=== PATIENT | male | born 1990 | race Two or more races ===

== ENCOUNTER 2025-05-27 08:57 | Emergency (ER) | payer MEDICAID, SELFPAY ==
[2025-05-27 08:59] VITALS: BMI 27.3
[2025-05-27 09:24] VITALS: BP 195/111; PULSE 78; RESP 19; TEMP 36.7; O2SAT 98
--- NOTE | 2025-05-27 09:29 | EKG_ITS ---
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
--- NOTE | 2025-05-27 09:29 | PD.EDRME ---
Rapid Medical Screening Exam RME Arrival date/time: 05/27/25 08:57 35-year-old male with no known medical history presents to the emergency room with a chief complaint of palpitations, insomnia, and withdrawing from alcohol x 4 days. Patient states he was sober for 42 days and recently relapsed. I have greeted and performed a focused initial assessment of this patient. A comprehensive ED assessment and evaluation of the patient, analysis of all test results, and completion of the medical decision making process will be conducted by additional ED providers. Chief Complaint: Alcohol Time Seen by Provider: 05/27/25 09:15 Vital signs: Vital Signs Temperature 98.0 F 05/27/25 09:24 Pulse Rate 78 05/27/25 09:24 Respiratory Rate 19 05/27/25 09:24 Blood Pressure 195/111 H 05/27/25 09:24 Pulse Oximetry (%) 98 05/27/25 09:24 Oxygen Delivery Method Room Air 05/27/25 09:24 Vital signs reviewed by provider: Yes
[2025-05-27 09:36] VITALS: BP 195/111; PULSE 78
[2025-05-27 10:11] LABS: Basophils # (Auto) 0.0 Thou/mm3 (0.0-0.2); Basophils % (Auto) 0 % (0-2.5); Eosinophils # (Auto) 0.1 Thou/mm3 (0.0-0.5); Eosinophils % (Auto) 1 % (0-10); Hematocrit 43.9 % (41.0-53.0); Hemoglobin 15.0 g/dL (13.5-16.0); Immature Granulocytes Auto 0.07 Thou/mm3 (0.00-0.00); Lymphocytes # (Auto) 1.4 Thou/mm3 (1.0-4.8); Lymphocytes % (Auto) 16 % (10-50); Mean Corpuscular HGB Conc 34.2 g/dl (31.0-37.0); Mean Corpuscular Hemoglobin 30.9 pg (25.0-35.0); Mean Corpuscular Volume 90 fL (80-100); Monocytes # (Auto) 1.1 Thou/mm3 (0.0-0.8); Monocytes % (Auto) 12 % (0-12); Neutrophils # (Auto) 6.5 Thou/mm3 (1.8-7.7); Neutrophils % (Auto) 71 % (37-80); Nucleated Red Blood Cell # 0.00 Thou/mm3 (0.00-0.00); Nucleated Red Blood Cell % 0 /100 WBC (0); Platelet Count 220 Thou/mm3 (140-440); RDW Standard Deviation 42.4 fL (35.1-43.9); Red Blood Count 4.86 Miln/mm3 (4.50-5.90); White Blood Count 9.2 Thou/mm3 (3.8-10.6)
--- NOTE | 2025-05-27 10:21 | EDNOTE_ITS ---
ED Alcohol RME/HPI General Chief Complaint: Alcohol Stated Complaint: ALCOHOL WITHDRAWL Time Seen by Provider: 05/27/25 09:15 Arrival date/time: 05/27/25 08:57 Limitations: no limitations RME / HPI RME / HPI narrative: 05/27/25 08:57 35-year-old male with no known medical history presents to the emergency room with a chief complaint of palpitations, insomnia, and withdrawing from alcohol x 4 days. Patient states he was sober for 42 days and recently relapsed. I have greeted and performed a focused initial assessment of this patient. A comprehensive ED assessment and evaluation of the patient, analysis of all test results, and completion of the medical decision making process will be conducted by additional ED providers. DR. MARSHALL BARRON ED EVALUATION 35 year old male presents to the ED for evaluation of feeling shaky and concerned he is going through alcohol withdrawal. Accompanied by feeling dehydrated, anxious, insomnia, and nausea. Reports history of heavy alcohol use and had stopped for 42 days while going to . However, states he relapsed and had a 6-day ha (drinking a lot of beer a day) with his last drink being 3 days ago Tuesday. Related Data Previous Rx's ?Medication ?Instructions ?Recorded melatonin 5 mg capsule 5 mg PO .qhs PRN insomnia 5 days 05/27/25 #5 caps Allergies Allergy/AdvReac Type Severity Reaction Status Date / Time No Known Allergies Allergy Verified 05/27/25 09:01 Review of Systems Review of Systems Systems Reviewed: All systems reviewed, normal except as documented Past Medical History Social History SMOKING STATUS: Never smoker ED Exam General Limitations: Present no limitations General appearance: Present alert and in no apparent distress Head Head exam: Present atraumatic, normocephalic and normal inspection Eye Eye exam: Present normal appearance, PERRL and EOMI ENT ENT exam: Present normal exam, normal oropharynx and mucous membranes moist Neck Neck exam: Present normal inspection, full ROM and trachea midline Chest Chest inspection: Present normal inspection and symmetric chest wall rise Respiratory Respiratory exam: Present normal lung sounds bilaterally Cardiovascular Cardiovascular exam: Present regular rate, normal rhythm and normal heart sounds Abdominal Exam Abdominal exam: Present soft and normal bowel sounds Extremities Exam Extremities exam: Present normal inspection and full ROM Back Exam Back exam: Present normal inspection and full ROM Neurological Exam Neurological exam: Present alert, oriented X3 and CN II-XII intact Psychiatric Psychiatric exam: Present normal affect and normal mood Skin Skin exam: Present warm, dry, intact and normal color Course Quality Measures none Orders Category Date Time Status EKG (ED ONLY) *Do not use* NOW Care 05/27/25 09:29 Completed EKG (ED Only) Stat Exams 05/27/25 09:29 Draft B-Type Natriuretic Peptide Stat Lab 05/27/25 09:49 Completed CBC Stat Lab 05/27/25 09:49 Completed Comprehensive Metabolic Panel Stat Lab 05/27/25 09:49 Completed Magnesium Stat Lab 05/27/25 09:49 Completed Troponin I Stat Lab 05/27/25 09:49 Completed Folic Acid Inj Med 05/27/25 10:32 Discontinued 1 mg IVP X1 ONE Sodium Chloride 0.9% 1000 ml [Ns] 1,000 ml Med 05/27/25 10:30 Discontinued IV 999 mls/hr Thiamine Inj [Vitamin B-1 Inj] Med 05/27/25 10:33 Discontinued 100 mg IVP X1 ONE cloNIDine HCL [Catapres] Med 05/27/25 09:29 Discontinued 0.1 mg PO X1 ONE cloNIDine HCL [Catapres] Med 05/27/25 10:36 Discontinued 0.1 mg PO X1 ONE Vital Signs Vital signs: Vital Signs Temperature 98.0 F 05/27/25 09:24 Pulse Rate 78 05/27/25 09:24 Respiratory Rate 19 05/27/25 09:24 Blood Pressure 195/111 H 05/27/25 09:24 Pulse Oximetry (%) 98 05/27/25 09:24 Oxygen Delivery Method Room Air 05/27/25 09:24 Pulse ox is 98% on room air which is adequate. Discharge Plan Plan Patient Disposition: HOME (Self Care) Discharge Disposition comment: Stable for discharge home Patient condition on transfer: Stable Prescriptions/Referrals Prescriptions/Med Rec: New melatonin 5 mg capsule 5 mg PO .qhs PRN (Reason: insomnia) 5 Days Qty: 5 0RF Referrals: [facility] [Provider Group] - In 1 week Problem List Clinical Impression: Alcoholism, Insomnia Patient/Caregiver Discharge Instructions Discharge Activity: activity as tolerated Education Materials: Alcoholism Resources, Alcoholism: Getting Help, Alcohol Addiction, Addiction: Your Treatment Options, ED Insomnia Additional Instructions: Please return to the emergency department if you have any worsening or any further medical problems and we will help you. Otherwise you should follow-up with your primary care doctor within the next several days You should attend an alcoholic Anonymous meeting every day for the next year. Make sure you get a sponsor and phone numbers from multiple members there. This can be your support system in your attempts to become sober Print Language: Albanian Stand Alone Forms: Barbara Award Info., Patient Portal Info Letter Alcohol MDM Narrative MDM Narrative: Arlyn Mccormick am scribing for and in the presence of Dr. Tran. Patient data External records reviewed:: None (No previous ED visits for review ) Clinical information provided by:: patient Social determinants that could affect healthcare access:: alcohol use Patient has the following chronic illnesses:: none reported How is presenting disease/condition affected by chronic disease/condition?: no chronic disease Evaluation data The following diagnostics were reviewed and interpreted by me:: lab results and EKG tracing(s) (09:32 AM. NSR HR 68, normal axis, no ectopy, no acute ischemia ) Lab and/or radiology exams considered but not ordered:: None Interpretation Summary: CBC and CMP within normal limits Medications / Prescriptions Medications or Prescriptions considered but not ordered:: None Medication administrations:: Medication Administration History Discontinued Medications Clonidine (Clonidine Hcl 0.1 Mg Tablet) 0.1 mg PO X1 ONE Stop: 05/27/25 09:30 Last Admin: 05/27/25 09:36 Dose: 0.1 mg Documented By: ROGER Clonidine (Clonidine Hcl 0.1 Mg Tablet) 0.1 mg PO X1 ONE Stop: 05/27/25 10:37 Last Admin: 05/27/25 11:12 Dose: 0.1 mg Documented By: JANINE Folic Acid (Folic Acid Inj 1 Mg/0.2 Ml) 1 mg IVP X1 ONE Stop: 05/27/25 10:33 Last Admin: 05/27/25 11:10 Dose: 1 mg Documented By: JANINE Sodium Chloride (Ns) 1,000 mls @ 999 mls/hr IV .Q1H1M ONE Stop: 05/27/25 11:30 Last Admin: 05/27/25 11:09 Dose: 999 mls/hr Documented By: JANINE Thiamine HCl (Thiamine Inj 100 Mg/Ml Vial 2 Ml) 100 mg IVP X1 ONE Stop: 05/27/25 10:34 Last Admin: 05/27/25 11:11 Dose: 100 mg Documented By: VRS See above Consultations Consultation(s) initiated? (list below): No Diagnosis Differential diagnosis alcohol: hypomagnesemia, alcohol intoxication and alcohol withdrawal syndrome Most likely diagnosis given after review of the tests above:: Alcoholism Insomnia Admission Indicated Admission indicated?: not indicated Admission Request Was there a request for admission?: No Disposition Plan Disposition Plan: Discharge Discharge Attestation Discharge Attestation: The patient and all family members were given an opportunity to ask questions and understood the discharge instructions. Discharge instructions specifically effects, indications for sooner follow up or return to the emergency department, and the expected course of current diagnosis. Patient condition: Stable
[2025-05-27 10:27] LABS: Alanine Aminotransferase 46 U/L (10-49); Albumin, Serum 4.9 gm/dL (3.5-5.0); Albumin/Globulin Ratio 1.8 (1.2-2.2); Alkaline Phosphatase 95 U/L (46-116); Anion Gap 9 (7-16); Aspartate Amino Transferase 48 U/L (0-34); BUN/Creatinine Ratio 12 Ratio (12-20); Bilirubin,Total 1.0 mg/dL (0.3-1.2); Blood Urea Nitrogen 14 mg/dL (9-23); Calcium 10.0 mg/dL (8.3-10.6); Calcium (Corrected) 10.0 mg/dL (8.5-10.1); Carbon Dioxide 28.4 mMol/L (20.0-31.0); Chloride 100 mMol/L (98-107); Creatinine (Component) 1.2 mg/dL (0.6-1.3); Estimated Creatinine Clearance 83.1 mL/min (>60); Globulin 2.8 gm/dL (2.3-3.5); Glucose 126 mg/dL (74-106); Magnesium 1.8 mg/dL (1.6-2.6); Osmolality,Calculated 276 (275-295); Potassium 4.3 mMol/L (3.4-5.1); Sodium 137 mMol/L (136-145); Total Protein 7.7 gm/dL (5.7-8.2); Troponin I < 0.020 ng/mL (0.0-0.045); eGFR > 60 See Note
[2025-05-27 10:31] LABS: B-Type Natriuretic Peptide < 20 pg/mL (0-100)
--- NOTE | 2025-05-27 10:42 | PC.NURSE ---
PT STATES THAT HE'S BEEN DRINKING FOR 7 DAYS AND LAST DRINK WAS ON TUESDAY. PT STATES THAT HE WAS DRINKING BEERS DAILY BUT IS UNABLE TO DETERMINE HOW MANY HE DRANK A DAY. PT STATES TO FEEL SHAKING, SWEATING, SOB, AND HAS TROUBLE WITH VISION. PT STATES TO HAVE HAD WITHDRAWAL SYMPTOMS IN THE PAST BUT DID NOT HAVE SZ. PT IS A/OX4 AT THIS TIME AND ANSWERING ALL QUESTIONS APPROPRIATELY. PT AWAITING TO BE SEEN BY .
[2025-05-27] MEDS: SODIUM CHLORIDE 0.9% 1000 ML 1,000 ML 999 ML IV (11:09)
[2025-05-27] MEDS: FOLIC ACID INJ 1 MG/0.2 ML IVP (11:10)
[2025-05-27] MEDS: THIAMINE INJ 100 MG/ML VIAL 2 ML IVP (11:11)
[2025-05-27 11:12] VITALS: BP 161/84; PULSE 77
[2025-05-27 11:35] VITALS: PULSE 73
[2025-05-27 12:36] VITALS: BP 171/89; PULSE 90
== END 2025-05-27 12:38 | disposition home or self-care (01) ==
PROVIDERS: Nurse Practitioner Family; Emergency Provider Emergency Medicine
DX: F10.20 Alcohol dependence, uncomplicated (principal); R94.31 Abnormal electrocardiogram [ECG] [EKG]; G47.00 Insomnia, unspecified
CPT/HCPCS: 36415; 80053; 80307; 81001; 83735; 83880; 84484; 85025; 93005; 96374; 96375; 99283; J3411; J3490; J7030; A9270

== ENCOUNTER 2025-05-27 13:45 | Emergency (ER) | payer MEDICAID, SELFPAY ==
[2025-05-27 13:45] VITALS: BMI 27.3
[2025-05-27 13:51] VITALS: BP 186/96; PULSE 81; RESP 17; TEMP 37.2; O2SAT 98
--- NOTE | 2025-05-27 14:00 | EKG_ITS ---
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
--- NOTE | 2025-05-27 14:00 | XR_ITS ---
Examination: CT brain head without contrast. 2-D sagittal coronal reconstructions Date and time of exam:May 27, 2025 1546 hours INDICATIONS: Syncopal episode today CTDI: vol (mGy):50.6 DLP: (mGycm):990 Technique: Multiple CT axial sections of the brain have been obtained, 5 mm slice thickness. Contrast has not been administered. 2-D sagittal, coronal reconstructions have been obtained Low dose protocols were performed. One or more of the following dose reduction techniques were used; automated exposure control, adjustment of the mA and/or KV according to patient size, use of iterative reconstruction technique. Findings: No significant ventricular enlargement. Intra-axial or extra-axial hemorrhage density is not seen. No mass effect or midline shift Basal cisterns are not remarkable. Fourth ventricle is midline. Cranial vault intact. Impression: Negative for acute hemorrhage, mass effect or midline shift
[2025-05-27 14:09] VITALS: BP 186/96; PULSE 81
[2025-05-27 14:46] LABS: Troponin I < 0.002 ng/mL (0.0-0.045)
--- NOTE | 2025-05-27 15:38 | PD.EDADULT ---
ED General RME/HPI General Chief complaint: General Adult/Misc Complain Stated complaint: DOESN'T FEEL WELL Time Seen by Provider: 05/27/25 13:47 Arrival date/time: 05/27/25 13:45 This is a case of 35-year-old male who came in in the emergency room due to elevated blood pressure with some dizziness and headache patient states the he was seen here this morning due to alcohol intoxication and elevated blood pressure patient was given banana bag and clonidine to decrease blood pressure patient condition markedly improved and the symptoms resolved thus patient was discharged with stable condition recurrence of the symptoms now with elevated blood pressure this patient decided to sought consult here in the emergency room Limitations: no limitations Related Data Previous Rx's ?Medication ?Instructions ?Recorded lisinopril 5 mg tablet 5 mg PO QDAY #14 tabs 05/27/25 melatonin 5 mg capsule 5 mg PO .qhs PRN insomnia 5 days 05/27/25 #5 caps Allergies Allergy/AdvReac Type Severity Reaction Status Date / Time No Known Allergies Allergy Verified 05/27/25 13:47 Review of Systems Review of Systems Systems Reviewed: All systems reviewed, normal except as documented Constitutional Constitutional: Reports system reviewed and no additional complaints, except as documented, Denies chills, Denies fever(s), Denies frequent falls, Reports headache(s) and Denies weakness Eyes Eyes: Reports system reviewed and no additional complaints, except as documented, Reports as per HPI, Denies blurry vision and Denies loss of vision ENT Ears, Nose, Mouth, and Throat: Denies abnormal hearing, Denies disequilibrium, Reports dizziness, Reports headache(s) and Reports vertigo Cardiovascular Cardiovascular: Reports system reviewed and no additional complaints, except as documented, Reports as per HPI, Denies chest pain, Denies dyspnea and Denies syncope Respiratory Respiratory: Reports system reviewed and no additional complaints, except as documented, Reports as per HPI and Denies dyspnea Gastrointestinal Gastrointestinal: Reports system reviewed and no additional complaints, except as documented, Reports as per HPI, Denies abdominal pain, Denies nausea and Denies vomiting Musculoskeletal Musculoskeletal: Denies abnormal gait, Denies numbness and Denies tingling Neurologic Neurologic: Reports system reviewed and no additional complaints, except as documented, Reports as per HPI, Denies abnormal gait, Denies abnormal hearing, Denies abnormal movements, Denies abnormal speech, Denies behavioral changes, Denies burning sensations, Denies confusion, Denies convulsions, Denies disequilibrium, Reports dizziness, Denies localized weakness, Denies frequent falls, Reports headache(s), Denies lack of coordination, Denies loss of vision, Denies memory loss, Denies numbness, Denies other visual disturbances, Denies paresthesias, Denies radicular pain, Denies restless legs, Denies seizure-like activity, Denies sensory deficit, Denies syncope, Denies tingling, Denies tremor(s), Reports vertigo and Denies weakness Psychiatric Psychiatric: Denies behavioral changes, Denies confusion and Denies memory loss Past Medical History Past Medical History CARDIAC: Positive Hypertension; Negative Congestive Heart Failure RESPIRATORY: Negative Chronic Obstructive Pulmonary Disease (COPD) GENITOURINARY: Negative Renal Disease ENDOCRINE: Negative Diabetes Mellitus Type 1 or Diabetes Mellitus Type 2 Social History SMOKING STATUS: Never smoker ED Exam General Limitations: Present no limitations General appearance: Present alert, in no apparent distress and other (Patient is awake alert oriented not in distress nontoxic looking well-hydrated well-nourished) Head Head exam: Present atraumatic, normocephalic and normal inspection Eye Eye exam: Present normal appearance, PERRL, EOMI and other (no pappiledema ) ENT ENT exam: Present normal exam, normal oropharynx, mucous membranes moist and other (Normal HEENT exam) Neck Neck exam: Present normal inspection, full ROM, trachea midline and other (Negative meningeal sign); Absent tenderness, meningismus, lymphadenopathy or thyromegaly Chest Chest inspection: Present normal inspection and symmetric chest wall rise; Absent tenderness, rash or abscess Respiratory Respiratory exam: Present normal lung sounds bilaterally; Absent respiratory distress, wheezes, stridor, accessory muscle use or prolonged expiratory phase Cardiovascular Cardiovascular exam: Present regular rate, normal rhythm and normal heart sounds; Absent bradycardia, tachycardia, irregular rhythm, systolic murmur or diastolic murmur Abdominal Exam Abdominal exam: Present soft and normal bowel sounds; Absent distention, tenderness, guarding, rebound, rigidity, diminished bowel sounds, hyperactive bowel sounds or hypoactive bowel sounds Extremities Exam Extremities exam: Present normal inspection and full ROM Back Exam Back exam: Present normal inspection and full ROM Neurological Exam Neurological exam: Present alert, oriented X3, CN II-XII intact, normal gait, reflexes normal and other (Awake alert oriented x 4 no focal deficit GCS 15/15 steady gait motor 5/5 in all extremities sensory +2 in all extremities reflex +2 in all extremities CN II through XII is normal no signs slurring speech no facial droop negative Babinski); Absent motor sensory deficit Psychiatric Psychiatric exam: Present normal affect and normal mood Skin Skin exam: Present warm, dry, intact and normal color Course Quality Measures none Orders Category Date Time Status EKG (ED ONLY) *Do not use* NOW Care 05/27/25 14:[address] head/brain wo con Stat Exams 05/27/25 14:00 Completed EKG (ED Only) Stat Exams 05/27/25 14:00 Draft Troponin I Stat Lab 05/27/25 14:08 Completed LORazepam [Ativan] Med 05/27/25 14:00 Discontinued 1 mg PO X1 ONE cloNIDine HCL [Catapres] Med 05/27/25 14:00 Discontinued 0.1 mg PO X1 ONE Vital Signs Vital signs: Vital Signs Temperature 98.9 F 05/27/25 13:51 Pulse Rate 81 05/27/25 13:51 Respiratory Rate 17 05/27/25 13:51 Blood Pressure 186/96 H 05/27/25 13:51 Pulse Oximetry (%) 98 05/27/25 13:51 Oxygen Delivery Method Room Air 05/27/25 13:51 Patient is afebrile not tachycardic not tachypneic not hypoxic oxygen saturation is 98% in room air patient initial blood pressure is 186/96 after giving clonidine and Ativan patient blood pressure is 157/85 Discharge Plan Plan Patient Disposition: HOME (Self Care) Patient condition on transfer: Stable Prescriptions/Referrals Prescriptions/Med Rec: New lisinopril 5 mg tablet 5 mg PO QDAY Qty: 14 0RF No Action melatonin 5 mg capsule 5 mg PO .qhs PRN (Reason: insomnia) 5 Days Qty: 5 0RF Referrals: No Primary/Family,Physician [Primary Care Provider] - In 1 week Problem List Clinical Impression: Hypertension, uncontrolled, Alcoholism, Headache, Dizziness Patient/Caregiver Discharge Instructions Education Materials: Alcohol Addiction, Self-Care for Headaches, ED Dizziness, Uncertain Cause, ED Hypertension, Established Additional Instructions: Follow-up with your primary care physician in 2 days for reevaluation and to be referred to a neurologist for further evaluation and treatment of your headache and dizziness he 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 for further evaluation and treatment of your uncontrolled hypertension monitor your blood pressure twice a day and record your blood pressure and bring it to your PCP appointment if your blood pressure greater than 160/100 or become symptomatic return to the emergency room immediately or call 911 take your medication as directed follow-up with your primary care physician for alcoholism Print Language: Kazakh Stand Alone Forms: Barbara Award Info., Patient Portal Info Letter PA/SYSTEMS CHECKOUT MECHANIC Supervising Physician PA/SYSTEMS CHECKOUT MECHANIC Supervising Physician: DR mark HARMON Narrative MDM hospital course: This is a case of 35-year-old male who came in in the emergency room due to elevated blood pressure with some dizziness and headache patient states the he was seen here this morning due to alcohol intoxication and elevated blood pressure patient was given banana bag and clonidine to decrease blood pressure patient condition markedly improved and the symptoms resolved thus patient was discharged with stable condition recurrence of the symptoms now with elevated blood pressure this patient decided to sought consult here in the emergency room physical examination patient is awake alert oriented not in distress nontoxic looking well-hydrated well-nourished lungs sound is clear no crackles no rales no retraction no stridor heart normal rate regular rhythm no murmur neurological exam is normal awake alert oriented x 4 no focal deficit GCS 15/15 steady gait no slurring of speech no facial droop memory intact CN II through XII is normal motor or sensory reflex normal negative Babinski patient CT scan showed normal no intracranial bleed no mass patient EKG showed sinus rhythm 70 3 repeat troponin is also normal negative I reviewed patient record this morning and blood test which are all normal patient blood pressure mild because of his alcoholism or anxiety patient was given clonidine where the blood pressure went down to 157/85 I decided to start the patient on blood pressure medication low-dose of lisinopril and he was advised to follow-up with PCP to monitor blood pressure patient was advised to check blood pressure twice a day and if the blood pressure greater than 160/100 or become symptomatic he needs to return in the emergency room immediately or call 911 patient headache and dizziness is possibly due to elevated blood pressure after the blood pressure went down the headache and dizziness was resolved without pain medication at this point patient is stable to be discharged strict ER precaution was also discussed with the patient patient was also advised to follow-up with PCP for his alcoholism Patient was discharged with comfortable condition walking with stable gait. Patient verbalized no further complains explained diagnosis and answered patient question. Patient is comfortable with the proposed management plan including the need to follow up with his/her primary care physician and any specialist if applicable Discussed patient for any urgent condition or worsening sx, He/She needed to go to emergency room immediately or call 911. Patient acknowledge the responsibility to follow up as instructed and to monitor her/his symptoms. For any persistence of the symptoms for more than 3-5 days return precaution advised. Discussed the result of the test and was given printed discharge instruction Clinical Information Provided by patient Medical Records Reviewed [facility] None Meds/Rx Considered, not Ordered None Describe details: Given Labs/Rad/Tests considered, not Ordered Describe details: Reviewed EKG EKG Interpretation narrative: EKG showed sinus rhythm at 73 EKG Interpretation EKG #1: Date/time of EK05/27/25 4:50 pm Lab Interpretation Lab(s) interpretation(s): Labs reviewed normal Imaging Imaging interpretation: see narrative above Medication Administration(s) Medication Administration History Discontinued Medications Clonidine (Clonidine Hcl 0.1 Mg Tablet) 0.1 mg PO X1 ONE Stop: 05/27/25 14:01 Last Admin: 05/27/25 14:09 Dose: 0.1 mg Documented By: ROGER Lorazepam (Lorazepam 0.5 Mg Tablet) 1 mg PO X1 ONE Stop: 05/27/25 14:01 Last Admin: 05/27/25 14:09 Dose: 1 mg Documented By: OA Given Diagnosis Differential diagnosis: Uncontrolled hypertension headache dizziness tension headache dehydration Most likely dx, and/or detailed dx discussion: Uncontrolled hypertension Dispositon Disposition: Discharge Home
[2025-05-27 16:40] VITALS: BP 159/87; PULSE 76
== END 2025-05-27 17:36 | disposition home or self-care (01) ==
PROVIDERS: Nurse Practitioner Family; Emergency Provider Emergency Medicine
DX: F10.229 Alcohol dependence with intoxication, unspecified (principal); I10 Essential (primary) hypertension; R51.9 Headache, unspecified; R42 Dizziness and giddiness; R55 Syncope and collapse; R94.31 Abnormal electrocardiogram [ECG] [EKG]
CPT/HCPCS: 36415; 70450; 84484; 93005; 99283; A9270